=== PATIENT | female | born 1960 | race Caucasian/White ===

== ENCOUNTER 2022-04-13 21:26 | Emergency (ER) | payer OTHER ==
[~2022-04-13] VITALS: Ht 152.4 cm; Wt 59.0 kg
[2022-04-13 21:28] VITALS: BP 129/65
--- NOTE | 2022-04-13 21:30 | NUR ---
PT TO LOBBY
--- NOTE | 2022-04-13 21:55 | NUR ---
SEEN AND EXAMINED BY PA
[2022-04-13] MEDS ORDERED: ONDANSETRON 4 MG ODT PO ONE (22:00)
[2022-04-13] MEDS ORDERED: KETOROLAC 30 MG/ML VIAL IM ONE (22:00)
[2022-04-13] MEDS ORDERED: ONDANSETRON 4 MG ODT ONE (23:03)
[2022-04-13] MEDS ORDERED: KETOROLAC 60 MG/2 ML VIAL IM ONE (23:04)
[2022-04-13] MEDS ORDERED: IBUP-2213 PO (23:22)
[2022-04-13] MEDS ORDERED: LIDO5TDM59 TP (23:22)
[2022-04-13 23:33] LABS: APPEARANCE,URINE SL CLOUDY (CLEAR); BILIRUBIN,URINE NEGATIVE (NEGATIVE); BLOOD, URINE 1+ (NEGATIVE); COLOR,URINE YELLOW (YELLOW); LEUKOCYTE ESTERASE ,URINE 3+ (NEGATIVE); NITRITE, URINE NEGATIVE (NEGATIVE); UGLUCOSE NEGATIVE (NEGATIVE)
[2022-04-13 23:38] VITALS: BP 129/65
--- NOTE | 2022-04-13 23:38 | NUR ---
Patient discharged with v/s stable. Written and verbal after care instructions given and explained. Patient alert, oriented and verbalized understanding of instructions. Ambulatory with steady gait. All questions addressed prior to discharge. ID band removed. Patient advised to follow up with PMD. Rx of LIDODERM, IBUPROFEN given. Patient educated on indication of medication including possible reaction and side effects. Opportunity to ask questions provided and answered.
[2022-04-13 23:44] LABS: RBC,URINE 0-5 /HPF (0-5); WBC,URINE 20-60 /HPF (0-5)
[2022-04-14] MEDS ORDERED: NITR100C7 PO (00:16)
== END 2022-04-13 23:38 | disposition home or self-care (01) ==
LOC: MED 21:26
DX: S39.012A Strain of muscle, fascia and tendon of lower back, initial encounter (principal); I10 Essential (primary) hypertension; Z79.899 Other long term (current) drug therapy; X58.XXXA Exposure to other specified factors, initial encounter; Y93.89 Activity, other specified; Y92.89 Other specified places as the place of occurrence of the external cause; Y99.8 Other external cause status
CPT/HCPCS: 72110; 81001; 87086; 96372; 99284; J1885; Q0162

== ENCOUNTER 2022-12-30 14:24 | Emergency (ER) | payer OTHER ==
[~2022-12-30] VITALS: Ht 152.4 cm; Wt 67.7 kg
[~2022-12-30 14:24] MED LIST: IBUP-2213 PO; LIDO5TDM59 TP; NITR100C7 PO
[2022-12-30 14:30] VITALS: BP 127/66; PULSE 68; RESP 18; TEMP 97.8; O2SAT 98
[2022-12-30] MEDS ORDERED: KETOROLAC 30 MG/ML VIAL IM ONE (15:10)
[2022-12-30] MEDS ORDERED: ACET-10509 PO (16:57)
[2022-12-30] MEDS ORDERED: LIDO5TDM59 TP (16:57)
[2022-12-30 17:13] VITALS: BP 121/66; PULSE 62; RESP 18; TEMP 98; O2SAT 99
== END 2022-12-30 17:13 | disposition home or self-care (01) ==
LOC: MED 14:24
DX: M54.6 Pain in thoracic spine (principal); I10 Essential (primary) hypertension; Z79.899 Other long term (current) drug therapy; Z79.1 Long term (current) use of non-steroidal anti-inflammatories (NSAID); Z79.2 Long term (current) use of antibiotics
CPT/HCPCS: 72072; 96372; 99283; J1885